=== PATIENT | female | born 1955 | race Caucasian/White ===

== ENCOUNTER 2017-02-12 09:03 | Day surgery (SDC) | payer OTHER ==
[~2017-02-12] VITALS: Ht 165.1 cm; Wt 88.0 kg
[~2017-02-12 09:03] MED LIST: BACITRACIN 50,000 UNIT ONE; BACITRACIN OINT 500U/GM, 15 GM ONE; EPINEPHRINE TOPICAL SOLN 1 MG/ML, 30ML ONE; FLUORESCEIN OPHTHALMIC 1 MG STRIP ONE; LIDOCAINE/PF 1%, 30ML ONE; OXYMETAZOLINE NASAL SPRAY 0.05%, 15ML ONE
[2017-02-12] MEDS ORDERED: LIDOCAINE 1%, 2ML ONE (10:11)
[2017-02-12 10:16] VITALS: BP 128/83
[2017-02-12] MEDS ORDERED: OMEG1CAP23 PO (10:16)
[2017-02-12] MEDS ORDERED: THYR60TA PO (10:16)
[2017-02-12] MEDS ORDERED: TESTOSTERONE CREAM TD (10:16)
[2017-02-12] MEDS ORDERED: PROG100C4 PO (10:16)
[2017-02-12] MEDS ORDERED: ESTROGEN CREAM TD (10:16)
[2017-02-12] MEDS ORDERED: LACTATED RINGERS 1,000 ML IV SCH (10:19)
[2017-02-12] MEDS ORDERED: LIDOCAINE 1%, 2ML SQ PRN (10:30)
[2017-02-12] MEDS ORDERED: MIDAZOLAM 1 MG/ML, 2ML ONE (10:37)
[2017-02-12] MEDS ORDERED: FENTANYL PF 100 MCG/2ML ONE ×2 (10:37→13:38)
[2017-02-12] MEDS ORDERED: OXYcodone 5 MG/5 ML ORAL.SOL UDC PO PRN (11:00)
[2017-02-12] MEDS ORDERED: hydrALAzine 20 MG/ML, 1ML IV PRN (11:00)
[2017-02-12] MEDS ORDERED: MIDAZOLAM 1 MG/ML, 2ML IV PRN (11:00)
[2017-02-12] MEDS ORDERED: HYDROmorphone 1 MG/ML, 1ML IV PRN (11:00)
[2017-02-12] MEDS ORDERED: LABETALOL 5MG/ML, 20ML IV PRN (11:00)
[2017-02-12] MEDS ORDERED: HYDROcodone/APAP 7.5-325MG/15ML UDC PO PRN (11:00)
[2017-02-12] MEDS ORDERED: ONDANSETRON 2MG/ML, 2ML IVPush PRN (11:00)
[2017-02-12] MEDS ORDERED: ACETAMINOPHEN 325 MG TABLET PO PRN (11:00)
[2017-02-12] MEDS ORDERED: MEPERIDINE/PF 25MG/0.5ML IVPush PRN (11:00)
[2017-02-12] MEDS ORDERED: PROMETHAZINE 25 MG/ML, 1ML IV PRN (11:00)
[2017-02-12] MEDS ORDERED: EPHEDRINE 50 MG/ML, 1ML IVPush PRN (11:00)
[2017-02-12] MEDS ORDERED: EPINEPHRINE 1 MG/ML, 1ML ONE (11:18)
[2017-02-12] MEDS ORDERED: REMIFENTANIL 2 MG ONE (11:19)
[2017-02-12] MEDS ORDERED: PROPOFOL 10 MG/ML, 50ML ONE (11:42)
[2017-02-12] MEDS ORDERED: ONDANSETRON 2MG/ML, 2ML ONE (11:42)
[2017-02-12] MEDS ORDERED: EPHEDRINE 50 MG/ML, 1ML ONE (11:42)
[2017-02-12] MEDS ORDERED: ESMOLOL 100 MG/10 ML ONE (11:42)
[2017-02-12] MEDS ORDERED: CEFAZOLIN 1,000 MG ONE ×2 (11:42)
[2017-02-12] MEDS ORDERED: SUCCINYLCHOLINE 20 MG/ML, 10ML ONE (11:42)
[2017-02-12] MEDS ORDERED: ROCURONIUM 10 MG/ML ONE (11:42)
[2017-02-12] MEDS ORDERED: PROPOFOL 10 MG/ML, 20ML ONE (11:42)
[2017-02-12] MEDS ORDERED: FLUORESCEIN OPHTHALMIC 1 MG STRIP ONE (11:59)
[2017-02-12] MEDS ORDERED: LIDOCAINE/PF 1%, 30ML ONE (11:59)
[2017-02-12] MEDS ORDERED: EPINEPHRINE TOPICAL SOLN 1 MG/ML, 30ML ONE (11:59)
[2017-02-12] MEDS ORDERED: OXYMETAZOLINE NASAL SPRAY 0.05%, 15ML NAS ONE (12:24)
[2017-02-12] MEDS ORDERED: ACETAMINOPHEN 650 MG/20.3 ML UDC ONE (13:38)
[2017-02-12] MEDS ORDERED: OXYcodone 5 MG/5 ML ORAL.SOL UDC ONE (13:38)
[2017-02-12] MEDS: FENTANYL PF 100 MCG/2ML IV PRN ×2 (13:40→14:00)
== END 2017-02-12 16:00 | disposition home or self-care (01) ==
LOC: OUT 09:03
PROVIDERS: ATTEND Otolaryngology
DX: J34.2 Deviated nasal septum (principal); J32.4 Chronic pansinusitis; Z72.89 Other problems related to lifestyle; Z98.890 Other specified postprocedural states; J45.909 Unspecified asthma, uncomplicated
CPT/HCPCS: 30520; 31255; 31256; 31276; 80047; 88304; 88311; J0171; J0330; J0690; J2250; J2405; J2704; J3010; J3490

== ENCOUNTER → 2017-08-01 | Outpatient (CLI) | payer SELFPAY ==
[~2017-08-01] MED LIST changes: -BACITRACIN 50,000 UNIT ONE; -BACITRACIN OINT 500U/GM, 15 GM ONE; -EPINEPHRINE TOPICAL SOLN 1 MG/ML, 30ML ONE; +ESTROGEN CREAM TD; -FLUORESCEIN OPHTHALMIC 1 MG STRIP ONE; -LIDOCAINE/PF 1%, 30ML ONE; +OMEG1CAP23 PO; -OXYMETAZOLINE NASAL SPRAY 0.05%, 15ML ONE; +PROG100C16 PO; +TESTOSTERONE CREAM TD; +THYR60TA PO
== END | disposition home or self-care (01) ==
LOC: LAB 12:27
PROVIDERS: ATTEND Specialist
DX: Z00.00 Encounter for general adult medical examination without abnormal findings (principal)
CPT/HCPCS: 36415